=== PATIENT | male | born 1940 | race Caucasian/White ===

== ENCOUNTER 2020-06-01 12:10 | Emergency (ER) | payer MEDICARE ==
[2020-06-01 12:59] LABS: HEMOGLOBIN 15.3 gm/dl (14.0-17.5); RED BLOOD COUNT 4.26 M/UL (4.20-5.50); WHITE BLOOD COUNT 9.5 K/UL (4.5-11.0)
[2020-06-01 13:21] LABS: BUN/CREATININE RATIO 27 (0-10)
[2020-06-01] MEDS ORDERED: CONSTULOSE10 GM/15 M PO (17:33)
== END 2020-06-01 18:26 | disposition home or self-care (01) ==
LOC: ER1 12:10
PROVIDERS: Emergency Medicine
DX: K59.00 Constipation, unspecified (principal); R33.9 Retention of urine, unspecified
CPT/HCPCS: 51702; 80053; 81001; 83690; 85025; 85652; 86140; 99284; J7030; Q9967